=== PATIENT | female | born 1985 | race Two or more races ===

== ENCOUNTER → 2017-07-05 | Outpatient (CLI) | payer OTHER ==
[2017-07-05 08:48] LABS: AUTOMATED NEUTROPHIL # 11.1 TH/MM3 (1.8-7.7); BASOPHIL % 0.3 % (0.0-2.0); EOSINOPHIL # 0.1 TH/MM3 (0-0.4); EOSINOPHIL % 0.8 % (0.0-4.0); HEMO FLAGS DIFF FINAL; LYMPH % 15.8 % (9.0-44.0); LYMPHOCYTE # 2.3 TH/MM3 (1.0-4.8); MEAN CELL VOLUME 80.6 FL (80.0-100.0); MEAN CORPUSCULAR HEMOGLOBIN 27.9 PG (27.0-34.0); MEAN CORPUSCULAR HGB CONC 34.6 % (32.0-36.0); MONO % 5.8 % (0.0-8.0); NEUT % 77.3 % (16.0-70.0); PLATELET COUNT 207 TH/MM3 (150-450); RED BLOOD COUNT 4.71 MIL/MM3 (4.00-5.30); RED CELL DISTRIBUTION WIDTH 13.6 % (11.6-17.2); WHITE BLOOD COUNT 14.3 TH/MM3 (4.0-11.0)
[2017-07-05 08:53] LABS: BACTERIA, URINE RARE /hpf; BLOOD, URINE NEG (NEG); GLUCOSE,URINE NEG (NEG); KETONE, URINE NEG (NEG); MUCUS URINE FEW /lpf (OCC); NITRITE,URINE NEG (NEG); SQUAMOUS EPITHELIAL CELL URINE 1 /hpf (0-5); URINE COLOR LIGHT-YELLOW (YELLW/STRAW)
[2017-07-05 09:21] LABS: SICKLE CELL SCREEN NEG (NEG)
[2017-07-05 09:26] LABS: ALT (GPT) 24 U/L (10-53); AST (GOT) 13 U/L (15-37); BICARBONATE 21.4 MEQ/L (21.0-32.0); BLOOD UREA NITROGEN 10 MG/DL (7-18); GLOMERULAR FILTRATION RATE 164 ML/MIN (>89); GLUCOSE,FASTING 95 MG/DL (74-99)
[2017-07-05 09:27] LABS: ANION GAP 11 MEQ/L (5-15); CHLORIDE 104 MEQ/L (98-107); POTASSIUM 3.8 MEQ/L (3.5-5.1); SODIUM (NA) 136 MEQ/L (136-145)
[2017-07-05 09:28] LABS: ALKALINE PHOSPHATASE 71 U/L (45-117); TOTAL BILIRUBIN ADULT 0.4 MG/DL (0.2-1.0)
[2017-07-05 10:01] LABS: RUBELLA IGG ANTIBODY 21.3 IU/mL (10.0-500.0); RUBELLA STATUS IMMUNE (IMMUNE)
[2017-07-05 20:37] LABS: HEMOGLOBIN A1b 0.9 %; HEMOGLOBIN Ao 86.1 %; HEMOGLOBIN F 0.9 %; HEMOGLOBIN LA1C 1.7 %; HEMOGLOBIN P3 3.4 %
== END ==
LOC: CLAB 08:10
PROVIDERS: ATTEND Obstetrics & Gynecology
DX: Z34.91 Encounter for supervision of normal pregnancy, unspecified, first trimester (principal); R82.90 Unspecified abnormal findings in urine
CPT/HCPCS: 36415; 80053; 80307; 81001; 82570; 83036; 84156; 85025; 85660; 86592; 86703; 86762; 86787; 86803; 86850; 86900; 86901; 87086; 87340; G0480

== ENCOUNTER → 2017-07-08 | Outpatient (CLI) | payer OTHER ==
[2017-07-08 12:42] LABS: CALCIUM - URINE TIMED 8.2 MG/DL
[2017-07-08 12:43] LABS: TOTAL PROTEIN 24 HOUR URINE 87 MG/24HR (0-150); URINE TOTAL PROTEIN TIMED LESS THAN 5.0 MG/DL
[2017-07-08 12:48] LABS: CREAT 24 TIMED 30.7 MG/DL
== END ==
LOC: CLAB 09:45
PROVIDERS: ATTEND Obstetrics & Gynecology
DX: Z34.91 Encounter for supervision of normal pregnancy, unspecified, first trimester (principal)
CPT/HCPCS: 82340; 82570; 84157

== ENCOUNTER → 2017-10-20 | Outpatient (CLI) | payer OTHER ==
[2017-10-20 12:48] LABS: HEMATOCRIT 35.8 % (35.0-46.0); HEMOGLOBIN 12.5 GM/DL (11.6-15.3)
== END ==
LOC: CLAB 11:08
PROVIDERS: ATTEND Obstetrics & Gynecology
DX: Z34.93 Encounter for supervision of normal pregnancy, unspecified, third trimester (principal); Z33.1 Pregnant state, incidental
CPT/HCPCS: 36415; 82951; 85014; 85018; 86703; 87340; G0480

== ENCOUNTER 2017-12-07 11:39 | Observation (INO) | payer OTHER ==
[~2017-12-07] VITALS: Ht 157.5 cm; Wt 87.0 kg
[2017-12-07] VITALS (37 sets, daily range): BP systolic 113–148; BP diastolic 67–97; PULSE 76–96; RESP 8–18; TEMP 98.4–98.7
[2017-12-07] MEDS ORDERED: ONDANSETRON HCL 4 MG/2 ML VIAL IV PUSH PRN (12:00)
[2017-12-07] MEDS ORDERED: DOCUSATE SODIUM 100 MG CAP PO PRN (12:00)
[2017-12-07] MEDS ORDERED: ACETAMINOPHEN 325 MG TAB PO PRN (12:00)
[2017-12-07] MEDS ORDERED: ONDANSETRON ODT 4 MG TAB PO PRN (12:00)
[2017-12-07] MEDS ORDERED: LABETALOL HCL 100 MG/20 ML VIAL IV PUSH PRN ×2 (12:00→12:15)
[2017-12-07] MEDS ORDERED: MAGNESIUM SULFATE 4 GM PREMIX 100 ML IV ONE (12:00)
[2017-12-07] MEDS ORDERED: CALCIUM GLUCONATE 10% 1 GM/10 ML VIAL IV PUSH PRN (12:00)
[2017-12-07] MEDS ORDERED: SODIUM CHLORIDE 0.9% FLUSH 10 ML FLUSH IV FLUSH PRN (12:00)
[2017-12-07] MEDS ORDERED: ZOLPIDEM TARTRATE 5 MG TAB PO PRN (12:00)
[2017-12-07] MEDS: BETAMETHASONE SOD PHOS/ACETATE SUSP 30 MG/5 ML VIAL IM SCH (13:04)
[2017-12-07] MEDS: LACTATED RINGER'S 1000 ML INJ 1,000 ML IV SCH (13:04)
[2017-12-07 13:12] LABS: HEMATOCRIT 35.9 % (35.0-46.0); HEMOGLOBIN 12.6 GM/DL (11.6-15.3); MEAN CELL VOLUME 78.5 FL (80.0-100.0); MEAN CORPUSCULAR HEMOGLOBIN 27.6 PG (27.0-34.0); MEAN CORPUSCULAR HGB CONC 35.2 % (32.0-36.0); MEAN PLATELET VOLUME 9.8 FL (7.0-11.0); PLATELET COUNT 181 TH/MM3 (150-450); RED BLOOD COUNT 4.57 MIL/MM3 (4.00-5.30); RED CELL DISTRIBUTION WIDTH 15.3 % (11.6-17.2); WHITE BLOOD COUNT 12.8 TH/MM3 (4.0-11.0)
[2017-12-07] MEDS: MAGNESIUM SULFATE 40 GM PREMIX 1,000 ML IV SCH (13:16)
[2017-12-07 13:37] LABS: ALBUMIN 2.7 GM/DL (3.4-5.0); AST (GOT) 19 U/L (15-37); BICARBONATE 19.8 MEQ/L (21.0-32.0); BLOOD UREA NITROGEN 7 MG/DL (7-18); CHLORIDE 110 MEQ/L (98-107); CREATININE 0.53 MG/DL (0.50-1.00); GLOMERULAR FILTRATION RATE 135 ML/MIN (>89); GLUCOSE,RANDOM 77 MG/DL (74-106); SODIUM (NA) 140 MEQ/L (136-145)
[2017-12-07 13:38] LABS: ALT (GPT) 14 U/L (10-53)
[2017-12-07 13:40] LABS: ALKALINE PHOSPHATASE 157 U/L (45-117); TOTAL BILIRUBIN ADULT 0.2 MG/DL (0.2-1.0); TOTAL PROTEIN 7.1 GM/DL (6.4-8.2)
[2017-12-07 13:51] LABS: BACTERIA, URINE OCC /hpf; BILIRUBIN, URINE NEG (NEG); BLOOD, URINE NEG (NEG); GLUCOSE,URINE NEG (NEG); KETONE, URINE NEG (NEG); MUCUS URINE FEW /lpf (OCC); NITRITE,URINE NEG (NEG); SQUAMOUS EPITHELIAL CELL URINE 10 /hpf (0-5); URINE COLOR LIGHT-YELLOW (YELLW/STRAW); URINE LEUKOCYTE ESTERASE NEG (NEG)
[2017-12-07] MEDS ORDERED: PREN1TAB45 PO (14:35)
--- NOTE | 2017-12-07 17:10 | HHI.HP ---
HPI Chief Complaint gestational hypertension, rule out preeclampsia Travel History International Travel<30 Days: No Contact w/Intl Traveler<30Days: No Known Affected Area: No History of Present Illness HPI 31 yo with iup at 33w5d by first trimester u/s being admitted for PIH, r /o pre-eclampsia. BP today was 130/90 with trace protein; She has been having headaches the last 3 days, severity has decreased after tylenol but still present today. Believes she saw spots last week. No ruq pain or epigastric pain. G1 complicated by severe pre-e and delivery at 35 weeks. Same FOB. Weeks Gestation: 33 Para: 1 : 2 History Past Medical History Narrative Medical vaginismus Medical History: Denies Significant Hx Obstetric History Obstetric History 01/2013 CD at 35 weeks for severe pre-e , Male 3 lb 15 oz Past Surgical History Narrative Surgical cd Family History Family History: Negative Social History Alcohol Use: No Tobacco Use: No Substance Abuse: No Allergies-Medications (Allergen,Severity, Reaction): Coded Allergies: No Known Allergies (Unverified , 12/07/17) Home Meds Reported Medications Vit,Calc76/Iron/Folic (Pnv 29-1 Tablet) 29 Mg Iron-1 Mg Tablet, 1 TAB PO dailyy 12/07/17 Review of Systems Eyes: Visual changes HENT: Headaches Physical Exam Vital Signs Date Time Temp Pulse Resp B/P (MAP) Pulse Ox O2 Delivery O2 Flow Rate FiO2 12/07/17 16:31 85 135/87 (103) 12/07/17 16:16 86 135/87 (103) 12/07/17 16:01 84 134/76 (95) 12/07/17 15:46 89 126/73 (90) 12/07/17 15:31 80 141/89 (106) 12/07/17 15:16 81 135/86 (102) 12/07/17 15:01 81 135/88 (104) 12/07/17 15:00 17 12/07/17 14:46 80 118/96 (103) 12/07/17 14:31 76 141/79 (99) 12/07/17 14:30 16 12/07/17 14:16 83 138/88 (105) 12/07/17 14:01 86 144/92 (109) 12/07/17 14:00 16 12/07/17 13:55 96 12/07/17 13:50 83 12/07/17 13:46 83 144/91 (108) 12/07/17 13:45 89 12/07/17 13:31 85 132/87 (102) 12/07/17 13:30 85 12/07/17 13:30 16 12/07/17 13:15 80 137/97 (110) 12/07/17 13:08 82 148/93 (111) 12/07/17 12:10 90 144/93 (110) 12/07/17 12:09 98.7 12/07/17 12:09 18 Narrative GENERAL: Well-nourished, well-developed patient. SKIN: Warm and dry. HEAD: Normocephalic and atraumatic. EYES: No scleral icterus. No injection or drainage. ENT: No nasal drainage noted. Mucous membranes pink. Airway patent. NECK: Supple, trachea midline. No JVD. CARDIOVASCULAR: Regular rate and rhythm without murmurs, gallops, or rubs. ABDOMEN/GI: Abdomen soft, non-tender, bowel sounds present, no rebound, no guarding Gravid [id number] size Fundal Height: [-] GENITOURINARY: External Genitalia: defer Presentation: [C] Membranes: [intact Uterine Contractions: [-] FHT's: office u/s BPP 8/8, Placenta grade 2-3, normal UA dopplers. EFW 4 lb, (20 %ile) EXTREMITIES: No cyanosis or edema. BACK: Nontender without obvious deformity. No CVA tenderness. NEUROLOGICAL: Awake and alert. Motor and sensory grossly within normal limits. Five out of 5 muscle strength in all muscle groups. Normal speech. No lconus, reflexes 2+ Caprini VTE Risk Assessment Caprini VTE Risk Assessment: No/Low Risk (score <= 1) Caprini Risk Assessment Model Point Value = 1 Point Value = 2 Point Value = 3 Point Value = 5 Age 41-60 Minor surgery BMI > 25 kg/m2 Swollen legs Varicose veins or History of unexplained or recurrent spontaneous Oral contraceptives or hormone replacement Sepsis (< 1 month) Serious lung disease, including pneumonia (< 1 month) Abnormal pulmonary function Acute myocardial infarction Congestive heart failure (< 1 month) History of inflammatory bowel disease Medical patient at bed rest Age 61-74 Arthroscopic surgery Major open surgery (> 45 min) Laparoscopic surgery (> 45 min) Malignancy Confined to bed (> 72 hours) Immobilizing plaster cast Central venous access Age >= 75 History of VTE Family history of VTE Factor V Leiden Prothrombin [id number] Lupus anticoagulant Anticardiolipin antibodies Elevated serum homocysteine Heparin-induced thrombocytopenia Other congenital or acquired thrombophilia Stroke (< 1 month) Elective arthroplasty Hip, pelvis, or leg fracture Acute spinal cord injury (< 1 month) Prophylaxis Regimen Total Risk Factor Score Risk Level Prophylaxis Regimen 0-1 Low Early ambulation 2 Moderate Order ONE of the following: *Sequential Compression Device (SCD) *Heparin 5000 units SQ BID 3-4 Higher Order ONE of the following medications: *Heparin 5000 units SQ TID *Enoxaparin/Lovenox 40 mg SQ daily (WT < 150 kg, CrCl > 30 mL/min) *Enoxaparin/Lovenox 30 mg SQ daily (WT < 150 kg, CrCl > 10-29 mL/min) *Enoxaparin/Lovenox 30 mg SQ BID (WT < 150 kg, CrCl > 30 mL/min) AND/OR *Sequential Compression Device (SCD) 5 or more Highest Order ONE of the following medications: *Heparin 5000 units SQ TID (Preferred with Epidurals) *Enoxaparin/Lovenox 40 mg SQ daily (WT < 150 kg, CrCl > 30 mL/min) *Enoxaparin/Lovenox 30 mg SQ daily (WT < 150 kg, CrCl > 10-29 mL/min) *Enoxaparin/Lovenox 30 mg SQ BID (WT < 150 kg, CrCl > 30 mL/min) AND *Sequential Compression Device (SCD) Data Data Vital Signs Reviewed: Yes Orders Orders Place In Observation (12/07/17 ) Vital Signs (Adult) Q5MX4,Q15MX4,Q30MX2,Q1H (12/07/17 11:55) Activity Bed Rest (12/07/17 11:55) Intake + Output Q1H (12/07/17 11:55) Notify Dr. Arnold (12/07/17 11:55) Heart CONTINUOUS (12/07/17 11:55) Urinary Catheter Management CARLOS.Q8H (12/07/17 11:55) ^ Check Deep Tendon Reflexes Q1H (12/07/17 11:55) Diet Liquid (12/07/17 Lunch) Lactated Ringer's 1000 Ml Inj (Lr 1000 M (12/07/17 12:00) Sodium Chloride 0.9% Flush (Ns Flush) (12/07/17 12:00) Sodium Chloride 0.9% Flush (Ns Flush) (12/07/17 21:00) Magnesium Sulfate 40 Gm Premix (Magnesiu (12/07/17 12:00) Labetalol Inj (Trandate Inj) (12/07/17 12:00) Labetalol Inj (Trandate Inj) (12/07/17 12:15) Betamethasone Inj ([place]estone Soluspan In (12/07/17 12:00) Calcium Gluconate Inj (Calcium Gluconate (12/07/17 12:00) Acetaminophen (Tylenol) (12/07/17 12:00) Ondansetron Inj (Zofran Inj) (12/07/17 12:00) Ondansetron Odt (Zofran Odt) (12/07/17 12:00) Docusate Sodium (Colace) (12/07/17 12:00) [id number]-Kws-Hijjk-Iron Prenat (Stuartna (12/08/17 09:00) Zolpidem (Ambien) (12/07/17 12:00) Cbc No Diff, Includes Plts (12/07/17 11:55) Cbc No Diff, Includes Plts (12/08/17 06:00) Comprehensive Metabolic Panel (12/07/17 11:55) Comprehensive Metabolic Panel (12/08/17 06:00) Uric Acid (12/07/17 11:55) Uric Acid (12/08/17 06:00) Urinalysis - C+S If Indicated (12/07/17 11:55) Total Protein 24hr Urine (12/07/17 11:55) Creatinine 24 Hr Urine (12/07/17 11:55) Magnesium Sulfate 4 Gm Premix (Magnesium (12/07/17 12:00) Specimen To Be Collected PRN (12/07/17 11:55) Urine Culture (12/07/17 12:30) Labs Laboratory Tests Test 12/07/17 12:30 White Blood Count 12.8 Red Blood Count 4.57 Hemoglobin 12.6 Hematocrit 35.9 Mean Corpuscular Volume 78.5 Mean Corpuscular Hemoglobin 27.6 Mean Corpuscular Hemoglobin Concent 35.2 Red Cell Distribution Width 15.3 Platelet Count 181 Mean Platelet Volume 9.8 Urine Color LIGHT-YELLOW Urine Turbidity HAZY Urine pH 7.0 Urine Specific [place] 1.009 Urine Protein NEG Urine Glucose (UA) NEG Urine Ketones NEG Urine Occult Blood NEG Urine Nitrite NEG Urine Bilirubin NEG Urine Urobilinogen LESS THAN 2.0 Urine Leukocyte Esterase NEG Urine RBC LESS THAN 1 Urine WBC 1 Urine Squamous Epithelial Cells 10 Urine Bacteria OCC Urine Mucus FEW Microscopic Urinalysis Comment CATH-CULTURE IND Blood Urea Nitrogen 7 Creatinine 0.53 Random Glucose 77 Total Protein 7.1 Albumin 2.7 Calcium Level 9.0 Uric Acid 3.1 Alkaline Phosphatase 157 Aspartate Amino Transf (AST/SGOT) 19 Alanine Aminotransferase (ALT/SGPT) 14 Total Bilirubin 0.2 Sodium Level 140 Potassium Level 3.9 Chloride Level 110 Carbon Dioxide Level 19.8 Anion Gap 10 Estimat Glomerular Filtration Rate 135 Date/Time Source Procedure Growth Status 12/07/17 12:30 Urine Catheterized Urine Urine Culture Pending Received Assessment/Plan Problem List: (1) PIH ( induced hypertension) ICD Codes: O13.9 - Gestational [-induced] hypertension without significant proteinuria, unspecified trimester (2) with 33 completed weeks gestation ICD Codes: Z3A.33 - 33 weeks gestation of (3) History of delivery ICD Codes: Z98.891 - History of uterine scar from previous surgery (4) History of pre-eclampsia in prior , currently in third trimester ICD Codes: O09.293 - Supervision of with other poor reproductive or obstetric history, third trimester Assessment and Plan 31 yo with iup at 33wd being admitted for pre-eclampsia workup 1) PIH r/o pre-e - serial BP, PIH labs and 24 hour urine ordered. BMS for lung maturity and Magnesium 12 hours for neuroprotection in event early delivery required. Discussed need for delivery if severe features present. 2) H/o severe pre-e with G1- baseline 24 hour urine wiht 87mg of protein. P:C 0.29 3) H/o CD- desires repeat 4) Vaginismus- does not tolerate pelvic exam/speculum 5) FEtus- Male "navneet" EFW 4 lb on 12/07/17, normal UA dopplers 6) GBS unknown- keesha order rapid gbs Sweta Pinon MD Dec 07, 2017 17:10
[2017-12-07] MEDS: SODIUM CHLORIDE 0.9% FLUSH 10 ML FLUSH IV FLUSH SCH (21:00)
[2017-12-08] VITALS (24 sets, daily range): BP systolic 110–144; BP diastolic 64–94; PULSE 79–95; RESP 14–18; TEMP 97.8–98.3
[2017-12-08 05:55] LABS: HEMATOCRIT 36.4 % (35.0-46.0); HEMOGLOBIN 12.1 GM/DL (11.6-15.3); MEAN CELL VOLUME 79.8 FL (80.0-100.0); MEAN CORPUSCULAR HEMOGLOBIN 26.6 PG (27.0-34.0); MEAN CORPUSCULAR HGB CONC 33.4 % (32.0-36.0); MEAN PLATELET VOLUME 9.6 FL (7.0-11.0); PLATELET COUNT 179 TH/MM3 (150-450); RED BLOOD COUNT 4.55 MIL/MM3 (4.00-5.30); RED CELL DISTRIBUTION WIDTH 15.1 % (11.6-17.2); WHITE BLOOD COUNT 16.9 TH/MM3 (4.0-11.0)
[2017-12-08 06:24] LABS: ALBUMIN 2.5 GM/DL (3.4-5.0); CALCIUM 7.2 MG/DL (8.5-10.1); CREATININE 0.52 MG/DL (0.50-1.00); TOTAL BILIRUBIN ADULT 0.4 MG/DL (0.2-1.0); TOTAL PROTEIN 6.7 GM/DL (6.4-8.2)
[2017-12-08 06:32] LABS: CALCIUM-PROTEIN CORRECTED 7.4 MG/DL (8.5-10.1)
[2017-12-08] MEDS: SODIUM CHLORIDE 0.9% FLUSH 10 ML FLUSH IV FLUSH SCH ×2 (08:13→21:10)
[2017-12-08] MEDS: MAGNESIUM SULFATE 40 GM PREMIX 1,000 ML IV SCH (08:13)
[2017-12-08] MEDS ORDERED: MULTIVIT/MIN/PREN/FOL AC/IRON PRENATAL TAB PO SCH (09:00)
--- NOTE | 2017-12-08 11:33 | PD.OB.ANTE ---
Subjective Diagnosis: (1) PIH ( induced hypertension) (2) with 33 completed weeks gestation (3) History of delivery (4) History of pre-eclampsia in prior , currently in third trimester Interval History Feeling well mild headache at times no nausea, vomiting or blurred vison good movement BP's elevated compared to in awaiting 24 hour urine Objective Vital Signs Vital Signs Date Time Temp Pulse Resp B/P (MAP) Pulse Ox O2 Delivery O2 Flow Rate FiO2 12/08/17 11:00 18 12/08/17 10:00 93 128/79 (95) 12/08/17 09:37 17 12/08/17 09:01 92 113/68 (83) 12/08/17 08:01 94 144/94 (111) 12/08/17 08:00 97.8 12/08/17 08:00 18 12/08/17 07:01 84 128/74 (92) 12/08/17 06:01 86 125/76 (92) 12/08/17 05:00 79 124/79 (94) 12/08/17 05:00 16 12/08/17 04:01 79 124/75 (91) 12/08/17 03:00 84 18 126/82 (97) 12/08/17 02:01 84 110/70 (83) 12/08/17 01:01 95 130/82 (98) 12/08/17 01:00 98.0 18 12/08/17 00:01 92 115/64 (81) 12/07/17 23:01 94 113/67 (82) 12/07/17 22:00 18 12/07/17 22:00 91 127/73 (91) 12/07/17 21:01 89 123/80 (94) 12/07/17 21:00 18 12/07/17 20:00 96 131/79 (96) 12/07/17 19:29 98.4 18 12/07/17 19:01 91 114/84 (94) 12/07/17 18:01 93 130/81 (97) 12/07/17 18:00 8 18 18:00 18 12/07/17 17:01 85 124/76 (92) 12/07/17 17:00 16 12/07/17 16:46 90 138/76 (96) 12/07/17 16:31 85 135/87 (103) 12/07/17 16:16 86 135/87 (103) 12/07/17 16:01 84 134/76 (95) 12/07/17 16:00 17 12/07/17 15:46 89 126/73 (90) 12/07/17 15:31 80 141/89 (106) 12/07/17 15:16 81 135/86 (102) 12/07/17 15:01 81 135/88 (104) 12/07/17 15:00 17 12/07/17 14:46 80 118/96 (103) 12/07/17 14:31 76 141/79 (99) 12/07/17 14:30 16 12/07/17 14:16 83 138/88 (105) 12/07/17 14:01 86 144/92 (109) 12/07/17 14:00 16 12/07/17 13:55 96 12/07/17 13:50 83 12/07/17 13:46 83 144/91 (108) 12/07/17 13:45 89 12/07/17 13:31 85 132/87 (102) 12/07/17 13:30 85 12/07/17 13:30 16 12/07/17 13:15 80 137/97 (110) 12/07/17 13:08 82 148/93 (111) 12/07/17 12:10 90 144/93 (110) 12/07/17 12:09 98.7 12/07/17 12:09 18 Lab & Micro Results Test 12/07/17 12:30 12/08/17 05:10 White Blood Count 12.8 TH/MM3 16.9 TH/MM3 Red Blood Count 4.57 MIL/MM3 4.55 MIL/MM3 Hemoglobin 12.6 GM/DL 12.1 GM/DL Hematocrit 35.9 % 36.4 % Mean Corpuscular Volume 78.5 FL 79.8 FL Mean Corpuscular Hemoglobin 27.6 PG 26.6 PG Mean Corpuscular Hemoglobin Concent 35.2 % 33.4 % Red Cell Distribution Width 15.3 % 15.1 % Platelet Count 181 TH/MM3 179 TH/MM3 Mean Platelet Volume 9.8 FL 9.6 FL Urine Color LIGHT-YELLOW Urine Turbidity HAZY Urine pH 7.0 Urine Specific [place] 1.009 Urine Protein NEG mg/dL Urine Glucose (UA) NEG mg/dL Urine Ketones NEG mg/dL Urine Occult Blood NEG Urine Nitrite NEG Urine Bilirubin NEG Urine Urobilinogen LESS THAN 2.0 MG/DL Urine Leukocyte Esterase NEG Urine RBC LESS THAN 1 /hpf Urine WBC 1 /hpf Urine Squamous Epithelial Cells 10 /hpf Urine Bacteria OCC /hpf Urine Mucus FEW /lpf Microscopic Urinalysis Comment CATH-CULTURE IND Blood Urea Nitrogen 7 MG/DL 5 MG/DL Creatinine 0.53 MG/DL 0.52 MG/DL Random Glucose 77 MG/DL 99 MG/DL Total Protein 7.1 GM/DL 6.7 GM/DL Albumin 2.7 GM/DL 2.5 GM/DL Calcium Level 9.0 MG/DL 7.2 MG/DL Uric Acid 3.1 MG/DL 4.1 MG/DL Alkaline Phosphatase 157 U/L 152 U/L Aspartate Amino Transf (AST/SGOT) 19 U/L 11 U/L Alanine Aminotransferase (ALT/SGPT) 14 U/L 14 U/L Total Bilirubin 0.2 MG/DL 0.4 MG/DL Sodium Level 140 MEQ/L 136 MEQ/L Potassium Level 3.9 MEQ/L 3.8 MEQ/L Chloride Level 110 MEQ/L 104 MEQ/L Carbon Dioxide Level 19.8 MEQ/L 21.0 MEQ/L Anion Gap 10 MEQ/L 11 MEQ/L Estimat Glomerular Filtration Rate 135 ML/MIN 138 ML/MIN Protein Corrected Calcium 7.4 MG/DL Date/Time Source Procedure Growth Status 12/07/17 12:30 Urine Catheterized Urine Urine Culture Pending Received Physical Exam GENERAL: Well-nourished, well-developed patient. CARDIOVASCULAR: Regular rate and rhythm without murmurs, gallops, or rubs. RESPIRATORY: Breath sounds equal bilaterally. No accessory muscle use. ABDOMEN/GI: Abdomen soft, non-tender. Fundus: [-] GENITOURINARY: External Genitalia: intact and normal in appearance strip category 1 EXTREMITIES: No cyanosis or edema, non-tender, without signs of DVT. Assessment and Plan Problem List: (1) PIH ( induced hypertension) ICD Codes: O13.9 - Gestational [-induced] hypertension without significant proteinuria, unspecified trimester (2) with 33 completed weeks gestation ICD Codes: Z3A.33 - 33 weeks gestation of (3) History of delivery ICD Codes: Z98.891 - History of uterine scar from previous surgery (4) History of pre-eclampsia in prior , currently in third trimester ICD Codes: O09.293 - Supervision of with other poor reproductive or obstetric history, third trimester Assessment and Plan 31 yo with iup at 33wd being admitted for pre-eclampsia workup 1) PIH r/o pre-e - serial BP, PIH labs and 24 hour urine ordered. BMS for lung maturity and Magnesium 12 hours for neuroprotection in event early delivery required. Discussed need for delivery if severe features present. 2) H/o severe pre-e with G1- baseline 24 hour urine wiht 87mg of protein. P:C 0.29 3) H/o CD- desires repeat 4) Vaginismus- does not tolerate pelvic exam/speculum 5) FEtus- Male "navneet" EFW 4 lb on 12/07/17, normal UA dopplers 6) GBS unknown- keesha order rapid gbs HD 2 can stop mag regular diet await 24 hour urine and re evalutate had severe pre eclampsia with first one at 35 weeks Debora Palacio MD Dec 08, 2017 11:33
[2017-12-08] MEDS: BETAMETHASONE SOD PHOS/ACETATE SUSP 30 MG/5 ML VIAL IM SCH (13:33)
[2017-12-08] MEDS: LACTATED RINGER'S 1000 ML INJ 1,000 ML IV SCH (14:21)
[2017-12-08 15:51] LABS: CREATININE 24 HOUR, URINE 0.95 GM/24HR (0.63-2.50)
[2017-12-09 06:26] VITALS: BP 113/63; PULSE 63; RESP 14; TEMP 98
--- NOTE | 2017-12-09 08:32 | HHI.PR ---
[employer] Note Note S: Doing well, denies headache, epigastric pain, right upper quadrant pain, no vaginal bleeding or leakage of fluid, endorses movement. O: VS: BP range x 24hrs: 113-129/63-82 Exam: deferred patellar DTRs 1+, no clonus bilaterally, FHTs: 120s, moderate variability, accelerations present, no decelerations TOCO: No contractions A/P 31-year-old at 34 weeks 0 days by L/9 (ADOLPH 01/20/2018) here for rule out preeclampsia. 1. IUP: cat 1 tracing - EFW (12/07)= 1814g (20%), AC 6%, JANIE 15cm, post plac, 03/29 BPP - cephalic as of above US - Male fetus - GBS pending 2. GHTN: Patient with mild range blood pressures on admission, have been normotensive and she has been asymptomatic over the past 24 hours. HELLP labs here normal 2. - BL 24hr urine protein 87mg (07/15/18), repeat during this admission 291mg () - s/p BMZ for FLM (12/07) - Dispo: d/c home, discussed preeclampsia precautions, patient to check blood pressures at home twice a day, inform her of criteria that warrant evaluation. Patient to follow-up in the office next week, plan for at least weekly testing and 1-2 times a week HELLP labs. 3. h/o x1: pt desires repeat 4. h/o PTD x1: at 34w for PREC, not on aspirin this 5. Vaginismus: pt does not tolerate exams well. Brian Jesus MD Dec 09, 2017 08:32
--- NOTE | 2017-12-09 08:40 | HHI.DS ---
Admission Date Dec 07, 2017 at 11:45 Discharge Date: Dec 09, 2017 Admitting Diagnosis Admitting diagnoses: Elevated blood pressures, history of 1, history of delivery secondary to preeclampsia. Discharge diagnoses: Gestational hypertension, remaining same as above Diagnosis: Brief History There is a 31-year-old who presented at 33 weeks in 3 days for evaluation for preeclampsia, she had serial HELLP labs that were all within normal limits, a 24-hour urine protein was collected and resulted at 291 mg, she had a baseline 24-hour urine on 07/15/2018 of 87 mg. She remained asymptomatic, she received betamethasone for lung maturity. A recent ultrasound on 12/07/17 showed her male fetus at 1814 g in the 20th percentile with a 8 out of 8 BPP. On hospital day #2, all the results were discussed with the patient and the plan was made for discharge home with close outpatient follow-up with testing and HELLP labs either 1-2 times a week, patient will check her blood pressures at home 1-2 times a day and call with any severe range blood pressures. Pt Condition on Discharge: Good Discharge Disposition: Discharge Home Discharge Instructions Diet Instructions: As Tolerated, No Restrictions Activities You Can Perform: Regular-No Restrictions Activities to Avoid: Strenuous Activity Follow up Referrals: MANUFACTURING OPERATOR - 1 Week @ [facility] with Sweta Pinon MD Continued Medications: Vit,Calc76/Iron/Folic (Pnv 29-1 Tablet) 29 Mg Iron-1 Mg Tablet 1 TAB PO Brian Collins MD Dec 09, 2017 08:40
== END 2017-12-09 11:20 | disposition home or self-care (01) ==
LOC: EDSTATUS 11:43 → H2EB 11:45
PROVIDERS: ADMIT Obstetrics & Gynecology; ATTEND Obstetrics & Gynecology
DX: O13.3 Gestational [pregnancy-induced] hypertension without significant proteinuria, third trimester (principal); Z3A.35 35 weeks gestation of pregnancy; Z87.59 Personal history of other complications of pregnancy, childbirth and the puerperium
CPT/HCPCS: 80053; 81001; 82570; 84157; 84550; 85027; 87086; 96361; 96365; 96366; 96372; 96376; G0378; J0702; J3475; J7120

== ENCOUNTER → 2017-12-15 | Outpatient (CLI) | payer OTHER ==
[~2017-12-15] MED LIST: IBUP-232 PO; PERC5TAB12 PO; PREN1TAB45 PO
[2017-12-15 10:42] LABS: AUTOMATED NEUTROPHIL # 11.6 TH/MM3 (1.8-7.7); BASOPHIL % 0.2 % (0.0-2.0); EOSINOPHIL # 0.2 TH/MM3 (0-0.4); EOSINOPHIL % 1.1 % (0.0-4.0); HEMATOCRIT 37.1 % (35.0-46.0); HEMOGLOBIN 12.5 GM/DL (11.6-15.3); LYMPH % 14.7 % (9.0-44.0); LYMPHOCYTE # 2.2 TH/MM3 (1.0-4.8); MEAN CELL VOLUME 79.8 FL (80.0-100.0); MEAN CORPUSCULAR HGB CONC 33.8 % (32.0-36.0); MEAN PLATELET VOLUME 9.8 FL (7.0-11.0); PLATELET COUNT 202 TH/MM3 (150-450); RED BLOOD COUNT 4.65 MIL/MM3 (4.00-5.30); RED CELL DISTRIBUTION WIDTH 15.1 % (11.6-17.2)
[2017-12-15 11:10] LABS: ALT (GPT) 14 U/L (10-53)
[2017-12-15 11:12] LABS: ALKALINE PHOSPHATASE 159 U/L (45-117); TOTAL BILIRUBIN ADULT 0.2 MG/DL (0.2-1.0); TOTAL PROTEIN 6.5 GM/DL (6.4-8.2)
[2017-12-15 11:14] LABS: ALBUMIN 2.5 GM/DL (3.4-5.0); AST (GOT) 19 U/L (15-37); BICARBONATE 20.4 MEQ/L (21.0-32.0); BLOOD UREA NITROGEN 11 MG/DL (7-18); CALCIUM 8.9 MG/DL (8.5-10.1); CHLORIDE 107 MEQ/L (98-107); CREATININE 0.59 MG/DL (0.50-1.00); GLOMERULAR FILTRATION RATE 120 ML/MIN (>89); GLUCOSE,FASTING 107 MG/DL (74-99); SODIUM (NA) 138 MEQ/L (136-145)
== END ==
LOC: CLAB 10:03
PROVIDERS: ATTEND Obstetrics & Gynecology
DX: O13.9 Gestational [pregnancy-induced] hypertension without significant proteinuria, unspecified trimester (principal)
CPT/HCPCS: 36415; 80053; 82570; 84156; 84550; 85025

== ENCOUNTER 2017-12-16 12:36 | Inpatient (IN) | payer OTHER ==
[2017-12-16] VITALS (33 sets, daily range): BP systolic 125–147; BP diastolic 74–96; PULSE 69–101; RESP 18; TEMP 98.2
[~2017-12-16 12:36] MED LIST changes: -IBUP-232 PO; -PERC5TAB12 PO
[2017-12-16] MEDS ORDERED: ACETAMINOPHEN 325 MG TAB PO PRN (13:00)
[2017-12-16] MEDS ORDERED: ONDANSETRON ODT 4 MG TAB PO PRN (13:00)
[2017-12-16] MEDS ORDERED: ZOLPIDEM TARTRATE 5 MG TAB PO PRN (13:00)
[2017-12-16] MEDS ORDERED: DOCUSATE SODIUM 100 MG CAP PO PRN (13:00)
[2017-12-16] MEDS ORDERED: ONDANSETRON HCL 4 MG/2 ML VIAL IV PUSH PRN (13:00)
[2017-12-16] MEDS ORDERED: SODIUM CHLORIDE 0.9% FLUSH 10 ML FLUSH IV FLUSH PRN (13:00)
[2017-12-16 14:38] LABS: AMORPHOUS SEDIMENT, URINE RARE; BACTERIA, URINE OCC /hpf; BILIRUBIN, URINE NEG (NEG); BLOOD, URINE NEG (NEG); GLUCOSE,URINE NEG (NEG); KETONE, URINE NEG (NEG); NITRITE,URINE NEG (NEG); SQUAMOUS EPITHELIAL CELL URINE 9 /hpf (0-5); URINE COLOR LIGHT-YELLOW (YELLW/STRAW); URINE LEUKOCYTE ESTERASE TRACE (NEG)
--- NOTE | 2017-12-16 15:22 | HHI.HP ---
HPI Chief Complaint GHTN and elevated P:C ratio Travel History International Travel<30 Days: No Contact w/Intl Traveler<30Days: No Known Affected Area: No History of Present Illness HPI 31 yo with iup at 35 weeks, dating by first trimester u/s c/w lmp (EDC ), being admitted for pre-eclampsia workup. She was admitted on 12/07with elevated BP and headaches. Bp normal to mild range, and normal labs during that admission. 24 hour urine collection- result 291 mg of protein. She received steroids on 12/07-12/08. She was sent home on modified bedrest; receiving twice weekly testing in the office. She reports normal BP at home. Presently denies CALVO, blurry visioni, RUQ pain. In office today, BP was 140/90. She had outpt PIH labs on 12/15/17; elevated protein to creatinine ratio of 0.34, remainder of labs normal. BPP 8/8 in office today, notes JANIE decreased to 6, UA dopplers elevated mildly at 3.4; Grade 3 placenta. Weeks Gestation: 35 Para: 1 : 2 History Past Medical History Narrative Medical vaginismus Obstetric History Obstetric History G1 01/2013 CD at 35 wk for severe pre-e, Male, 3 #15 oz. Haris Past Surgical History Narrative Surgical CD Family History Family History: Negative Social History Alcohol Use: No Tobacco Use: No Substance Abuse: No Allergies-Medications (Allergen,Severity, Reaction): Coded Allergies: No Known Allergies (Unverified , 12/07/17) Home Meds Reported Medications Vit,Calc76/Iron/Folic (Pnv 29-1 Tablet) 29 Mg Iron-1 Mg Tablet, 1 TAB PO dailyy 12/07/17 Review of Systems General / Constitutional: No: Fever, Weight Gain, Chills, Other Eyes: No: Diploplia, Blurred Vision, Visual changes, Pain, Photophobia HENT: No: Headaches, Vertigo, Lightheadedness Cardiovascular: No: Irregular Rhythm, Chest Pain or Discomfort, Palpitations, Tachycardia, Syncope, Varicosities, Edema, Cyanosis Respiratory: No: Cough, Short of Breath, Other Gastrointestinal: No: Nausea, Vomiting, Diarrhea Genitourinary: No: Decreased Urinary Output, Oliguria Musculoskeletal: No: Limited ROM, Weakness, Cramping, Edema, Pain Skin: No Rash, No Itching, No Dryness, No Lumps, No Change in Pigmentation, No Change in Nails, No Alopecia, No Lesions Neurologic: No: Weakness, Dizziness, Syncope, Focal Abnormalities, Coordination Problem, Headache, Slurred Speech, Seizures Psychiatric: No: Depression, Suicidal Ideations, Homicidal Ideation Endocrine: No: Heat Intolerance, Cold Intolerance, Polydipsia, Polyuria, Other Physical Exam Narrative GENERAL: Well-nourished, well-developed patient. SKIN: Warm and dry. HEAD: Normocephalic and atraumatic. EYES: No scleral icterus. No injection or drainage. ENT: No nasal drainage noted. Mucous membranes pink. Airway patent. NECK: Supple, trachea midline. No JVD. CARDIOVASCULAR: Regular rate and rhythm without murmurs, gallops, or rubs. RESPIRATORY: Breath sounds equal bilaterally. No accessory muscle use. ABDOMEN/GI: Abdomen soft, non-tender, bowel sounds present, no rebound, no guarding Gravid to 35 weeks size Fundal Height: [-] GENITOURINARY: decline Presentation: Ceph] Membranes: [intact Uterine Contractions: [-] FHT's: BPP 8/8, normal FCA EXTREMITIES: No cyanosis or edema. BACK: Nontender without obvious deformity. No CVA tenderness. NEUROLOGICAL: Awake and alert. Motor and sensory grossly within normal limits. Five out of 5 muscle strength in all muscle groups. Normal speech. Caprini VTE Risk Assessment Caprini VTE Risk Assessment: No/Low Risk (score <= 1) Caprini Risk Assessment Model Point Value = 1 Point Value = 2 Point Value = 3 Point Value = 5 Age 41-60 Minor surgery BMI > 25 kg/m2 Swollen legs Varicose veins or History of unexplained or recurrent spontaneous Oral contraceptives or hormone replacement Sepsis (< 1 month) Serious lung disease, including pneumonia (< 1 month) Abnormal pulmonary function Acute myocardial infarction Congestive heart failure (< 1 month) History of inflammatory bowel disease Medical patient at bed rest Age 61-74 Arthroscopic surgery Major open surgery (> 45 min) Laparoscopic surgery (> 45 min) Malignancy Confined to bed (> 72 hours) Immobilizing plaster cast Central venous access Age >= 75 History of VTE Family history of VTE Factor V Leiden Prothrombin [id number] Lupus anticoagulant Anticardiolipin antibodies Elevated serum homocysteine Heparin-induced thrombocytopenia Other congenital or acquired thrombophilia Stroke (< 1 month) Elective arthroplasty Hip, pelvis, or leg fracture Acute spinal cord injury (< 1 month) Prophylaxis Regimen Total Risk Factor Score Risk Level Prophylaxis Regimen 0-1 Low Early ambulation 2 Moderate Order ONE of the following: *Sequential Compression Device (SCD) *Heparin 5000 units SQ BID 3-4 Higher Order ONE of the following medications: *Heparin 5000 units SQ TID *Enoxaparin/Lovenox 40 mg SQ daily (WT < 150 kg, CrCl > 30 mL/min) *Enoxaparin/Lovenox 30 mg SQ daily (WT < 150 kg, CrCl > 10-29 mL/min) *Enoxaparin/Lovenox 30 mg SQ BID (WT < 150 kg, CrCl > 30 mL/min) AND/OR *Sequential Compression Device (SCD) 5 or more Highest Order ONE of the following medications: *Heparin 5000 units SQ TID (Preferred with Epidurals) *Enoxaparin/Lovenox 40 mg SQ daily (WT < 150 kg, CrCl > 30 mL/min) *Enoxaparin/Lovenox 30 mg SQ daily (WT < 150 kg, CrCl > 10-29 mL/min) *Enoxaparin/Lovenox 30 mg SQ BID (WT < 150 kg, CrCl > 30 mL/min) AND *Sequential Compression Device (SCD) Data Data Vital Signs Reviewed: Yes Orders Orders Us Ob Bpp Wo Nst (12/16/17 ) Place In Observation (12/16/17 ) Vital Signs (Adult) Q5MX4,Q15MX4,Q30MX2,Q1H (12/16/17 12:46) Activity Bed Rest (12/16/17 12:46) Intake + Output Q1H (12/16/17 12:46) Notify Parameters (12/16/17 12:46) Heart CONTINUOUS (12/16/17 12:46) ^ Check Deep Tendon Reflexes Q1H (12/16/17 12:46) Sodium Chloride 0.9% Flush (Ns Flush) (12/16/17 13:00) Sodium Chloride 0.9% Flush (Ns Flush) (12/16/17 21:00) Acetaminophen (Tylenol) (12/16/17 13:00) Ondansetron Inj (Zofran Inj) (12/16/17 13:00) Ondansetron Odt (Zofran Odt) (12/16/17 13:00) Docusate Sodium (Colace) (12/16/17 13:00) Drwstpsz-Wzv-Rdwqx-Iron Prenat (Stuartna (12/17/17 09:00) Zolpidem (Ambien) (12/16/17 13:00) Cbc No Diff, Includes Plts (12/16/17 12:46) Cbc No Diff, Includes Plts (12/17/17 06:00) Comprehensive Metabolic Panel (12/16/17 12:46) Comprehensive Metabolic Panel (12/17/17 06:00) Uric Acid (12/16/17 12:46) Uric Acid (12/17/17 06:00) Urinalysis - C+S If Indicated (12/16/17 12:46) Total Protein 24hr Urine (12/16/17 12:46) Creatinine 24 Hr Urine (12/16/17 12:46) Specimen To Be Collected PRN (12/16/17 12:46) Diet Regular Basic (12/16/17 Lunch) Heart CARLOS.QD (12/16/17 12:48) Activity Bed Rest With Brp (12/16/17 12:48) Type And Screen (12/16/17 13:56) Us Ob Repeat/Fu(Growth) (12/16/17 ) ^ Saline Lock (12/16/17 13:56) Urine Culture (12/16/17 13:10) Labs Laboratory Tests Test 12/16/17 13:10 Urine Color LIGHT-YELLOW Urine Turbidity HAZY Urine pH 6.0 Urine Specific [place] 1.004 Urine Protein NEG Urine Glucose (UA) NEG Urine Ketones NEG Urine Occult Blood NEG Urine Nitrite NEG Urine Bilirubin NEG Urine Urobilinogen LESS THAN 2.0 Urine Leukocyte Esterase TRACE Urine RBC 1 Urine WBC 4 Urine Squamous Epithelial Cells 9 Urine Amorphous Sediment RARE Urine Bacteria OCC Microscopic Urinalysis Comment CATH-CULTURE IND Date/Time Source Procedure Growth Status 12/16/17 13:10 Urine Catheterized Urine Urine Culture Pending Received Assessment/Plan Problem List: (1) 35 weeks gestation of ICD Codes: Z3A.35 - 35 weeks gestation of (2) PIH ( induced hypertension) ICD Codes: O13.9 - Gestational [-induced] hypertension without significant proteinuria, unspecified trimester (3) History of pre-eclampsia in prior , currently in third trimester ICD Codes: O09.293 - Supervision of with other poor reproductive or obstetric history, third trimester Assessment and Plan 31 yo with iup at 35w0d being admitted for pre-eclampsia workup 1)PIH r/o pre-e - serial BP, PIH labs and 24 hour urine ordered. Discussed need for delivery if severe features present. 2) H/o severe pre-e with G1- baseline 24 hour urine 87mg of protein. P:C 0.29 3) H/o CD- desires repeat 4) Vaginismus- does not tolerate pelvic exam/speculum; needs pap updated 5) Fetus- Male "Adam" EFW 4 lb on 12/07/17. S/p BMS and Magensium on . BPP today with elevated UA dopplers. Will repeat in hospital. 6) GBS unknown-will order rapid gbs. Sweta Pinon MD Dec 16, 2017 15:22
[2017-12-16 15:54] LABS: HEMATOCRIT 36.8 % (35.0-46.0); HEMOGLOBIN 12.7 GM/DL (11.6-15.3); MEAN CELL VOLUME 78.4 FL (80.0-100.0); MEAN CORPUSCULAR HEMOGLOBIN 27.1 PG (27.0-34.0); MEAN CORPUSCULAR HGB CONC 34.6 % (32.0-36.0); MEAN PLATELET VOLUME 9.5 FL (7.0-11.0); PLATELET COUNT 192 TH/MM3 (150-450); RED BLOOD COUNT 4.69 MIL/MM3 (4.00-5.30); RED CELL DISTRIBUTION WIDTH 15.3 % (11.6-17.2); WHITE BLOOD COUNT 16.6 TH/MM3 (4.0-11.0)
[2017-12-16 16:14] LABS: ALBUMIN 2.6 GM/DL (3.4-5.0); AST (GOT) 12 U/L (15-37); BICARBONATE 20.8 MEQ/L (21.0-32.0); BLOOD UREA NITROGEN 12 MG/DL (7-18); CALCIUM 8.8 MG/DL (8.5-10.1); CHLORIDE 108 MEQ/L (98-107); CREATININE 0.56 MG/DL (0.50-1.00); GLOMERULAR FILTRATION RATE 127 ML/MIN (>89); GLUCOSE,RANDOM 70 MG/DL (74-106); SODIUM (NA) 140 MEQ/L (136-145)
[2017-12-16 16:17] LABS: ALKALINE PHOSPHATASE 160 U/L (45-117); ALT (GPT) 14 U/L (10-53); TOTAL BILIRUBIN ADULT 0.3 MG/DL (0.2-1.0); TOTAL PROTEIN 6.9 GM/DL (6.4-8.2)
[2017-12-16] MEDS: SODIUM CHLORIDE 0.9% FLUSH 10 ML FLUSH IV FLUSH SCH (21:00)
[2017-12-17] VITALS (13 sets, daily range): BP systolic 122–130; BP diastolic 73–80; PULSE 72–118; RESP 18–20; TEMP 97.6–98.2
[2017-12-17 06:41] LABS: HEMATOCRIT 37.8 % (35.0-46.0); HEMOGLOBIN 12.8 GM/DL (11.6-15.3); MEAN CELL VOLUME 78.7 FL (80.0-100.0); MEAN CORPUSCULAR HEMOGLOBIN 26.6 PG (27.0-34.0); MEAN CORPUSCULAR HGB CONC 33.8 % (32.0-36.0); MEAN PLATELET VOLUME 9.2 FL (7.0-11.0); PLATELET COUNT 188 TH/MM3 (150-450); RED CELL DISTRIBUTION WIDTH 15.4 % (11.6-17.2); WHITE BLOOD COUNT 13.9 TH/MM3 (4.0-11.0)
[2017-12-17 07:17] LABS: ALBUMIN 2.5 GM/DL (3.4-5.0); AST (GOT) 10 U/L (15-37); BICARBONATE 21.2 MEQ/L (21.0-32.0); BLOOD UREA NITROGEN 13 MG/DL (7-18); CALCIUM 8.9 MG/DL (8.5-10.1); CHLORIDE 107 MEQ/L (98-107); CREATININE 0.46 MG/DL (0.50-1.00); GLOMERULAR FILTRATION RATE 159 ML/MIN (>89); GLUCOSE,RANDOM 91 MG/DL (74-106); SODIUM (NA) 140 MEQ/L (136-145)
[2017-12-17 07:21] LABS: ALKALINE PHOSPHATASE 161 U/L (45-117); ALT (GPT) 13 U/L (10-53); TOTAL BILIRUBIN ADULT 0.3 MG/DL (0.2-1.0); TOTAL PROTEIN 6.7 GM/DL (6.4-8.2)
[2017-12-17] MEDS: SODIUM CHLORIDE 0.9% FLUSH 10 ML FLUSH IV FLUSH SCH (09:00)
--- NOTE | 2017-12-17 09:42 | PD.OB.ANTE ---
Subjective Diagnosis: (1) PIH ( induced hypertension) Diagnosis: Principal (2) 35 weeks gestation of Diagnosis: Secondary (3) History of pre-eclampsia in prior , currently in third trimester Diagnosis: Secondary Interval History no complaints overnight; no headache, no vision changes, no edema, endorses good FM; no LOF or VB Antepartum ROS: Reports: movement normal, Denies: Loss of fluid, Vaginal bleeding, Contractions, Other Objective Vital Signs Vital Signs Date Time Temp Pulse Resp B/P (MAP) Pulse Ox O2 Delivery O2 Flow Rate FiO2 12/17/17 07:55 74 12/17/17 07:50 72 12/17/17 07:45 74 12/17/17 07:40 72 12/17/17 07:35 73 12/17/17 07:30 74 12/17/17 07:23 118 122/80 (94) 12/17/17 07:22 98.1 12/17/17 04:00 97.6 18 12/17/17 03:33 78 130/77 (94) 12/16/17 20:22 74 142/92 (109) 12/16/17 20:20 94 12/16/17 20:15 82 12/16/17 20:10 82 12/16/17 20:05 80 12/16/17 20:00 82 12/16/17 19:55 78 12/16/17 19:54 98.2 18 12/16/17 19:50 86 12/16/17 19:46 82 147/96 (113) 12/16/17 19:45 101 129/92 (104) 12/16/17 17:45 84 12/16/17 17:40 89 12/16/17 17:35 83 12/16/17 17:30 84 12/16/17 17:25 85 12/16/17 17:20 87 12/16/17 17:15 85 12/16/17 17:10 88 12/16/17 17:00 79 12/16/17 15:56 71 125/74 (91) 12/16/17 15:55 78 12/16/17 15:50 79 12/16/17 15:45 89 12/16/17 15:40 90 12/16/17 15:35 73 12/16/17 15:30 73 12/16/17 15:25 69 12/16/17 15:20 96 12/16/17 15:15 82 12/16/17 15:10 77 12/16/17 15:05 73 12/16/17 15:00 71 Lab & Micro Results Test 12/16/17 13:10 12/16/17 15:25 12/17/17 06:29 Urine Color LIGHT-YELLOW Urine Turbidity HAZY Urine pH 6.0 Urine Specific [place] 1.004 Urine Protein NEG mg/dL Urine Glucose (UA) NEG mg/dL Urine Ketones NEG mg/dL Urine Occult Blood NEG Urine Nitrite NEG Urine Bilirubin NEG Urine Urobilinogen LESS THAN 2.0 MG/DL Urine Leukocyte Esterase TRACE Urine RBC 1 /hpf Urine WBC 4 /hpf Urine Squamous Epithelial Cells 9 /hpf Urine Amorphous Sediment RARE Urine Bacteria OCC /hpf Microscopic Urinalysis Comment CATH-CULTURE IND White Blood Count 16.6 TH/MM3 13.9 TH/MM3 Red Blood Count 4.69 MIL/MM3 4.80 MIL/MM3 Hemoglobin 12.7 GM/DL 12.8 GM/DL Hematocrit 36.8 % 37.8 % Mean Corpuscular Volume 78.4 FL 78.7 FL Mean Corpuscular Hemoglobin 27.1 PG 26.6 PG Mean Corpuscular Hemoglobin Concent 34.6 % 33.8 % Red Cell Distribution Width 15.3 % 15.4 % Platelet Count 192 TH/MM3 188 TH/MM3 Mean Platelet Volume 9.5 FL 9.2 FL Blood Urea Nitrogen 12 MG/DL 13 MG/DL Creatinine 0.56 MG/DL 0.46 MG/DL Random Glucose 70 MG/DL 91 MG/DL Total Protein 6.9 GM/DL 6.7 GM/DL Albumin 2.6 GM/DL 2.5 GM/DL Calcium Level 8.8 MG/DL 8.9 MG/DL Uric Acid 3.7 MG/DL 3.6 MG/DL Alkaline Phosphatase 160 U/L 161 U/L Aspartate Amino Transf (AST/SGOT) 12 U/L 10 U/L Alanine Aminotransferase (ALT/SGPT) 14 U/L 13 U/L Total Bilirubin 0.3 MG/DL 0.3 MG/DL Sodium Level 140 MEQ/L 140 MEQ/L Potassium Level 3.8 MEQ/L 4.1 MEQ/L Chloride Level 108 MEQ/L 107 MEQ/L Carbon Dioxide Level 20.8 MEQ/L 21.2 MEQ/L Anion Gap 11 MEQ/L 12 MEQ/L Estimat Glomerular Filtration Rate 127 ML/MIN 159 ML/MIN Date/Time Source Procedure Growth Status 12/16/17 13:10 Urine Catheterized Urine Urine Culture Pending Received Physical Exam GENERAL: Well-nourished, well-developed patient. CARDIOVASCULAR: Regular rate and rhythm without murmurs, gallops, or rubs. RESPIRATORY: Breath sounds equal bilaterally. No accessory muscle use. ABDOMEN/GI: Abdomen soft, non-tender. Fundus: c/w dates GENITOURINARY: External Genitalia: deferred FHT's: Category: [I] Baseline: [120s-130s] Reactive: [y] Variability: [y] Decels: [n] EXTREMITIES: No cyanosis or edema, non-tender, without signs of DVT. Assessment and Plan Problem List: (1) 35 weeks gestation of ICD Codes: Z3A.35 - 35 weeks gestation of (2) PIH ( induced hypertension) ICD Codes: O13.9 - Gestational [-induced] hypertension without significant proteinuria, unspecified trimester (3) History of pre-eclampsia in prior , currently in third trimester ICD Codes: O09.293 - Supervision of with other poor reproductive or obstetric history, third trimester Assessment and Plan 31 yo with iup at 35w1d being admitted for pre-eclampsia workup in setting of gestational hypertension 1)PIH r/o pre-e - serial BP, PIH labs and 24 hour urine ordered. Discussed need for delivery if severe features present. - labs unremarkable, 24h urine due around 1300p today, pt asymptomatic currently - 8/8 BPP on 12/16/17; R NST today; weight is IUGR <10%tile but normal dopplers on 12/16/17 scan, daily NSTs while inpt and FHTs q4h 2) H/o severe pre-e with G1- baseline 24 hour urine 87mg of protein. P:C 0.29 3) H/o CD- desires repeat (no tubal); T&S ordered on admission 4) Vaginismus- does not tolerate pelvic exam/speculum; needs pap updated 5) Fetus- Male "Adam" EFW 4 lb on 12/07/17. S/p BMS and Magensium on . 8/8 BPP 12/16/17 with normal dopplers on hospital eval 6) dispo: not meeting criteria, await 24h urine results Suzi Thorpe MD Dec 17, 2017 09:42
[2017-12-17] MEDS: MULTIVIT/MIN/PREN/FOL AC/IRON PRENATAL TAB PO SCH (10:06)
[2017-12-17 14:43] LABS: CREATININE 24 HOUR, URINE 1.12 GM/24HR (0.63-2.50)
--- NOTE | 2017-12-17 23:21 | HHI.PR ---
Addendum to Inpatient Note Addendum Reason: Additional Documentation Additional Information Consult - Threatened delivery at 35 weeks with estimated weight of ~ 1800 grams due to maternal pre-eclampsia. Poor growth over the last 2 weeks. Possible delivery in the next 24-72 hours. Previous child 4 years ago, male delivered at [facility] at 3 lb 15 oz. Evidently baby went home in 3 days. Mom relates she had wanted to breast feed "But it didn't work and I didn't really have help". Other than that relates uneventful hospital and course. There is no history of genetic or inherited conditions. Mom is taking vitamins. Discussion: Nurse Practitioner met with mother regarding threatened delivery at 35 weeks gestation secondary to maternal pre-eclampsia. This consultation included generalized care of the baby including criteria for admission to NICU including < 36 weeks gestation and less than 2000 grams. Discussed common issues related to late infants including respiratory distress, feeding issues, difficulties in maintaining temperature and blood sugars. The Nurse Practitioner reviewed the expectations with delivery of an under these circumstances including delivery room atmosphere and stabilization. There was a review of nutritional support challenges including IV and gavage feeding. Discussed need for possible supplemental heat source of warmer or isolette. Breast feeding was encouraged, and mom was informed she would be pumping within one hour of delivery and the first 3 oral feeds would be at the breast. Explained that infant is at risk for hyperbilirubinemia and may require treatment with phototherapy. Support systems in [facility] at [facility] were reviewed and included , Case Management and Ministry which the family may utilize. Expected discharge would be based on feeding progress, weight gain, stable blood sugars and temperatures, no apnea/bradycardia/desats and no need for phototherapy. Parents expressed understanding of information. Questions were welcomed and addressed. Will continue to follow with OB and will anticipate care of baby if delivered at < 2 kg and < 36 weeks gestation. Greater than 50% of the consultation time was spent with the patient. Total time of consult was 50 minutes. Lazara Grande Dec 17, 2017 23:21
[2017-12-18] VITALS (25 sets, daily range): BP systolic 125–150; BP diastolic 68–88; PULSE 80–193; RESP 17–18; TEMP 98–98.5
[2017-12-18 05:18] LABS: AUTOMATED NEUTROPHIL # 12.5 TH/MM3 (1.8-7.7); BASOPHIL % 0.1 % (0.0-2.0); EOSINOPHIL # 0.2 TH/MM3 (0-0.4); EOSINOPHIL % 1.1 % (0.0-4.0); HEMATOCRIT 39.1 % (35.0-46.0); LYMPH % 13.6 % (9.0-44.0); LYMPHOCYTE # 2.2 TH/MM3 (1.0-4.8); MEAN CELL VOLUME 79.4 FL (80.0-100.0); MEAN CORPUSCULAR HEMOGLOBIN 26.5 PG (27.0-34.0); MEAN CORPUSCULAR HGB CONC 33.3 % (32.0-36.0); MEAN PLATELET VOLUME 9.1 FL (7.0-11.0); MONO % 7.7 % (0.0-8.0); MONOCYTE # 1.3 TH/MM3 (0-0.9); NEUT % 77.5 % (16.0-70.0); PLATELET COUNT 189 TH/MM3 (150-450); RED BLOOD COUNT 4.92 MIL/MM3 (4.00-5.30); RED CELL DISTRIBUTION WIDTH 15.6 % (11.6-17.2); WHITE BLOOD COUNT 16.2 TH/MM3 (4.0-11.0)
[2017-12-18 05:36] LABS: ALBUMIN 2.5 GM/DL (3.4-5.0); AST (GOT) 11 U/L (15-37); BICARBONATE 20.8 MEQ/L (21.0-32.0); BLOOD UREA NITROGEN 15 MG/DL (7-18); CHLORIDE 107 MEQ/L (98-107); CREATININE 0.56 MG/DL (0.50-1.00); GLOMERULAR FILTRATION RATE 127 ML/MIN (>89); GLUCOSE,RANDOM 89 MG/DL (74-106); SODIUM (NA) 139 MEQ/L (136-145)
[2017-12-18 05:38] LABS: ALT (GPT) 13 U/L (10-53)
[2017-12-18 05:39] LABS: ALKALINE PHOSPHATASE 171 U/L (45-117); TOTAL BILIRUBIN ADULT 0.2 MG/DL (0.2-1.0); TOTAL PROTEIN 6.7 GM/DL (6.4-8.2)
--- NOTE | 2017-12-18 07:55 | PD.OB.ANTE ---
Subjective Diagnosis: (1) PIH ( induced hypertension) Diagnosis: Principal (2) 35 weeks gestation of Diagnosis: Secondary (3) History of pre-eclampsia in prior , currently in third trimester Diagnosis: Secondary Interval History denies CALVO, vision changes, RUQ pain, nausea/vomiting; endorses good FM, feeling well Antepartum ROS: Reports: movement normal, Denies: New complaints, Loss of fluid, Vaginal bleeding, Contractions, Other Objective Vital Signs Vital Signs Date Time Temp Pulse Resp B/P (MAP) Pulse Ox O2 Delivery O2 Flow Rate FiO2 12/17/17 20:00 98.2 12/17/17 16:42 98.1 20 12/17/17 13:00 20 12/17/17 13:00 98.1 12/17/17 13:00 75 126/73 (90) 12/17/17 07:55 74 12/17/17 07:50 72 Lab & Micro Results Test 12/17/17 13:00 12/18/17 04:36 Urine Total Volume 24 Hours 3000 ML Urine Creatinine 24 Hour 1.12 GM/24HR Urine Total Protein 24 Hour 345 MG/24HR White Blood Count 16.2 TH/MM3 Red Blood Count 4.92 MIL/MM3 Hemoglobin 13.0 GM/DL Hematocrit 39.1 % Mean Corpuscular Volume 79.4 FL Mean Corpuscular Hemoglobin 26.5 PG Mean Corpuscular Hemoglobin Concent 33.3 % Red Cell Distribution Width 15.6 % Platelet Count 189 TH/MM3 Mean Platelet Volume 9.1 FL Neutrophils (%) (Auto) 77.5 % Lymphocytes (%) (Auto) 13.6 % Monocytes (%) (Auto) 7.7 % Eosinophils (%) (Auto) 1.1 % Basophils (%) (Auto) 0.1 % Neutrophils # (Auto) 12.5 TH/MM3 Lymphocytes # (Auto) 2.2 TH/MM3 Monocytes # (Auto) 1.3 TH/MM3 Eosinophils # (Auto) 0.2 TH/MM3 Basophils # (Auto) 0.0 TH/MM3 CBC Comment DIFF FINAL Differential Comment Blood Urea Nitrogen 15 MG/DL Creatinine 0.56 MG/DL Random Glucose 89 MG/DL Total Protein 6.7 GM/DL Albumin 2.5 GM/DL Calcium Level 9.0 MG/DL Uric Acid 3.7 MG/DL Alkaline Phosphatase 171 U/L Aspartate Amino Transf (AST/SGOT) 11 U/L Alanine Aminotransferase (ALT/SGPT) 13 U/L Total Bilirubin 0.2 MG/DL Sodium Level 139 MEQ/L Potassium Level 3.9 MEQ/L Chloride Level 107 MEQ/L Carbon Dioxide Level 20.8 MEQ/L Anion Gap 11 MEQ/L Estimat Glomerular Filtration Rate 127 ML/MIN Date/Time Source Procedure Growth Status 12/16/17 13:10 Urine Catheterized Urine Urine Culture - Preliminary IMMATURE GROWTH - REINCUBATE Resulted Physical Exam GENERAL: Well-nourished, well-developed patient. CARDIOVASCULAR: Regular rate and rhythm without murmurs, gallops, or rubs. RESPIRATORY: Breath sounds equal bilaterally. No accessory muscle use. ABDOMEN/GI: Abdomen soft, non-tender. Fundus: [c/w dates] GENITOURINARY: External Genitalia: deferred FHT's: Category: [I] Baseline: [130s] Reactive: [y] Variability: [y] Decels: [n] EXTREMITIES: No cyanosis, non-tender, without signs of DVT. Assessment and Plan Problem List: (1) PIH ( induced hypertension) ICD Codes: O13.9 - Gestational [-induced] hypertension without significant proteinuria, unspecified trimester (2) 35 weeks gestation of ICD Codes: Z3A.35 - 35 weeks gestation of (3) History of pre-eclampsia in prior , currently in third trimester ICD Codes: O09.293 - Supervision of with other poor reproductive or obstetric history, third trimester Assessment and Plan 31 yo with iup at 35w2d admitted 12/16/17 for pre-eclampsia workup in setting of gestational hypertension, now ruled in based on 24h urine protein 1)PreEclampsia - continue serial BP monitoring (normal to mild range since admission), PIH labs normal/stable, 24h urine with rules in for preeclampsia based on proteinuria; on review of growth scan from office 2 weeks ago and comparison to scan on 12/16/17 essentially no growth with new finding of IUGR on 12/16/17; normal dopplers, 03/29 BPP, R NST qshift since admission; discussed with patient recommendation for delivery if any signs of severity; is s/p NICU consult on 12/17/17, is for delivery via due to history 2) H/o severe pre-e with G1- baseline 24 hour urine 87mg of protein. Now with > 300mg protein on 12/17/17 3) H/o CD- desires repeat (no tubal); T&S ordered on admission 4) Vaginismus- does not tolerate pelvic exam/speculum; needs pap updated 5) Fetus- Male "Adam" EFW 3#14oz on 12/16/17; JANIE 8.7cm, placenta posterior & grade 3. S/p BMS and Magensium on 12/07/17. 8/8 BPP 12/16/17 with normal dopplers on hospital eval 12/16/17 6) dispo: not meeting criteria, anticipate stay until delivery then 3d PP due to Suzi Thorpe MD Dec 18, 2017 07:55
[2017-12-18] MEDS ORDERED: CITRIC ACID-SODIUM CITRATE LIQ 30 ML UDC PO SCH (09:45)
[2017-12-18] MEDS: MULTIVIT/MIN/PREN/FOL AC/IRON PRENATAL TAB PO SCH (11:03)
[2017-12-18] MEDS: SODIUM CHLORIDE 0.9% FLUSH 10 ML FLUSH IV FLUSH SCH ×2 (11:07→23:08)
[2017-12-19] VITALS (11 sets, daily range): BP systolic 115–138; BP diastolic 69–91; PULSE 67–87; RESP 18–20; TEMP 98.1–98.5; O2SAT 97–98
[2017-12-19 05:56] LABS: AUTOMATED NEUTROPHIL # 10.6 TH/MM3 (1.8-7.7); BASOPHIL % 0.2 % (0.0-2.0); EOSINOPHIL # 0.2 TH/MM3 (0-0.4); EOSINOPHIL % 1.1 % (0.0-4.0); HEMATOCRIT 37.9 % (35.0-46.0); HEMOGLOBIN 12.7 GM/DL (11.6-15.3); LYMPH % 15.5 % (9.0-44.0); LYMPHOCYTE # 2.2 TH/MM3 (1.0-4.8); MEAN CELL VOLUME 79.8 FL (80.0-100.0); MEAN CORPUSCULAR HEMOGLOBIN 26.8 PG (27.0-34.0); MEAN CORPUSCULAR HGB CONC 33.6 % (32.0-36.0); MEAN PLATELET VOLUME 9.4 FL (7.0-11.0); MONO % 7.7 % (0.0-8.0); MONOCYTE # 1.1 TH/MM3 (0-0.9); NEUT % 75.5 % (16.0-70.0); PLATELET COUNT 190 TH/MM3 (150-450); RED BLOOD COUNT 4.76 MIL/MM3 (4.00-5.30); RED CELL DISTRIBUTION WIDTH 15.6 % (11.6-17.2); WHITE BLOOD COUNT 14.1 TH/MM3 (4.0-11.0)
[2017-12-19] MEDS ORDERED: ceFAZolin 2 GM PREMIX 50 ML IV SCH (06:00)
[2017-12-19] MEDS ORDERED: LACTATED RINGER'S 1000 ML INJ 1,000 ML IV SCH ×2 (06:00→15:11)
[2017-12-19] MEDS ORDERED: LACTATED RINGER'S 1000 ML INJ 1,000 ML IV ONE (06:00)
[2017-12-19 06:17] LABS: ALBUMIN 2.5 GM/DL (3.4-5.0); BICARBONATE 21.2 MEQ/L (21.0-32.0); BLOOD UREA NITROGEN 13 MG/DL (7-18); CHLORIDE 107 MEQ/L (98-107); CREATININE 0.58 MG/DL (0.50-1.00); GLOMERULAR FILTRATION RATE 122 ML/MIN (>89); GLUCOSE,RANDOM 97 MG/DL (74-106); SODIUM (NA) 139 MEQ/L (136-145)
[2017-12-19 06:18] LABS: ALT (GPT) 13 U/L (10-53); AST (GOT) 12 U/L (15-37)
[2017-12-19 06:21] LABS: ALKALINE PHOSPHATASE 169 U/L (45-117); TOTAL BILIRUBIN ADULT 0.3 MG/DL (0.2-1.0); TOTAL PROTEIN 6.9 GM/DL (6.4-8.2)
[2017-12-19] MEDS ORDERED: ACETAMINOPHEN 1000 MG/100 ML 100 ML IV ONE ×2 (06:53→10:15)
[2017-12-19] MEDS ORDERED: MORPHINE SULFATE PF 5 MG/10 ML VIAL ONE (06:53)
--- NOTE | 2017-12-19 08:27 | PD.OB.ANTE ---
Subjective Diagnosis: (1) PIH ( induced hypertension) Diagnosis: Principal (2) 35 weeks gestation of Diagnosis: Secondary (3) History of pre-eclampsia in prior , currently in third trimester Diagnosis: Secondary Interval History good movemetn, no ctx or vb/lof. No current CALVO or blurry vision. Objective Vital Signs Vital Signs Date Time Temp Pulse Resp B/P (MAP) Pulse Ox O2 Delivery O2 Flow Rate FiO2 12/19/17 05:41 87 130/86 (101) 12/19/17 05:40 98.1 12/19/17 05:40 18 12/18/17 23:04 98.3 88 18 125/68 (87) 12/18/17 23:00 88 12/18/17 22:50 90 12/18/17 22:45 89 12/18/17 22:40 91 12/18/17 22:35 93 12/18/17 22:30 92 12/18/17 22:25 99 12/18/17 22:20 94 12/18/17 20:08 98.5 12/18/17 20:07 18 12/18/17 20:06 97 142/85 (104) 12/18/17 16:10 98.4 17 12/18/17 14:00 18 12/18/17 11:03 97 127/70 (89) 12/18/17 11:00 98.0 12/18/17 09:50 87 12/18/17 09:35 86 12/18/17 09:30 86 12/18/17 09:28 98.0 18 12/18/17 09:25 80 12/18/17 09:20 80 12/18/17 09:15 82 12/18/17 09:10 81 12/18/17 09:05 193 150/88 (108) Lab & Micro Results Test 12/19/17 05:29 White Blood Count 14.1 TH/MM3 Red Blood Count 4.76 MIL/MM3 Hemoglobin 12.7 GM/DL Hematocrit 37.9 % Mean Corpuscular Volume 79.8 FL Mean Corpuscular Hemoglobin 26.8 PG Mean Corpuscular Hemoglobin Concent 33.6 % Red Cell Distribution Width 15.6 % Platelet Count 190 TH/MM3 Mean Platelet Volume 9.4 FL Neutrophils (%) (Auto) 75.5 % Lymphocytes (%) (Auto) 15.5 % Monocytes (%) (Auto) 7.7 % Eosinophils (%) (Auto) 1.1 % Basophils (%) (Auto) 0.2 % Neutrophils # (Auto) 10.6 TH/MM3 Lymphocytes # (Auto) 2.2 TH/MM3 Monocytes # (Auto) 1.1 TH/MM3 Eosinophils # (Auto) 0.2 TH/MM3 Basophils # (Auto) 0.0 TH/MM3 CBC Comment DIFF FINAL Differential Comment Blood Urea Nitrogen 13 MG/DL Creatinine 0.58 MG/DL Random Glucose 97 MG/DL Total Protein 6.9 GM/DL Albumin 2.5 GM/DL Calcium Level 9.0 MG/DL Uric Acid 3.7 MG/DL Alkaline Phosphatase 169 U/L Aspartate Amino Transf (AST/SGOT) 12 U/L Alanine Aminotransferase (ALT/SGPT) 13 U/L Total Bilirubin 0.3 MG/DL Sodium Level 139 MEQ/L Potassium Level 4.0 MEQ/L Chloride Level 107 MEQ/L Carbon Dioxide Level 21.2 MEQ/L Anion Gap 11 MEQ/L Estimat Glomerular Filtration Rate 122 ML/MIN Date/Time Source Procedure Growth Status 12/16/17 13:10 Urine Catheterized Urine Urine Culture - Final 50-100,000 CFU/ML MIXED GRAM POSITIVE... Complete Physical Exam GENERAL: Well-nourished, well-developed patient. CARDIOVASCULAR: Regular rate and rhythm without murmurs, gallops, or rubs. RESPIRATORY: Breath sounds equal bilaterally. No accessory muscle use. ABDOMEN/GI: Abdomen soft, non-tender. Fundus: [-] GENITOURINARY: External Genitalia: intact and normal in appearance =defer FHT's: CAT I EXTREMITIES: No cyanosis or edema, non-tender, without signs of DVT. Assessment and Plan Problem List: (1) PIH ( induced hypertension) ICD Codes: O13.9 - Gestational [-induced] hypertension without significant proteinuria, unspecified trimester (2) 35 weeks gestation of ICD Codes: Z3A.35 - 35 weeks gestation of (3) History of pre-eclampsia in prior , currently in third trimester ICD Codes: O09.293 - Supervision of with other poor reproductive or obstetric history, third trimester Assessment and Plan 31 yo with iup at 35w3d admitted 12/16/17 for pre-eclampsia workup in setting of gestational hypertension, now ruled in based on 24h urine protein 1)PreEclampsia - continue serial BP monitoring (normal to mild range since admission), PIH labs normal/stable, 24h urine with rules in for preeclampsia based on proteinuria; on review of growth scan from office 2 weeks ago and comparison to scan on 12/16/17 essentially no growth with new finding of IUGR on 12/16/17; normal dopplers, 8/8 BPP, R NST qshift since admission; discussed with patient recommendation for delivery if any signs of severity; is s/p NICU consult on 12/17/17, is for delivery via today due to iugr and pree 2) H/o severe pre-e with G1- baseline 24 hour urine 87mg of protein. Now with > 300mg protein on 12/17/17 3) H/o CD- desires repeat (no tubal); T&S ordered on admission 4) Vaginismus- does not tolerate pelvic exam/speculum; needs pap updated 5) Fetus- Male "Adam" EFW 3#14oz on 12/16/17; JANIE 8.7cm, placenta posterior & grade 3. S/p BMS and Magnesium on 12/07/17. 8/8 BPP 12/16/17 with normal dopplers on hospital eval 12/16/17 6) dispo: not meeting criteria, anticipate stay until delivery then 3d PP due to Sweta Pinon MD Dec 19, 2017 08:27
[2017-12-19] MEDS ORDERED: EPIDURAL-DIPHENHYDRAMINE HCL 50 MG CAP PO PRN (08:35)
[2017-12-19] MEDS ORDERED: EPIDURAL-NALOXONE HCL 0.4 MG/ML AMP IV PUSH PRN (08:35)
[2017-12-19] MEDS ORDERED: EPIDURAL-DIPHENHYDRAMINE HCL 50 MG/ML VIAL IV PUSH PRN (08:35)
[2017-12-19] MEDS ORDERED: EPIDURAL-DO NOT ADMINISTER ANTICOAGULANTS PRN (08:35)
[2017-12-19] MEDS ORDERED: EPIDURAL-NO SYSTEMIC NARCOTICS PRN (08:35)
[2017-12-19] MEDS ORDERED: BUPIVACAINE LIPOSOME PF 1.3% 20 ML VIAL ONE (09:49)
[2017-12-19] MEDS ORDERED: SODIUM CHLORIDE 0.9% 20 ML VIAL ONE (09:50)
--- NOTE | 2017-12-19 10:10 | PD.OB.DELI ---
Procedure Note Section Procedure Pre Op Diagnosis: (1) Pre-eclampsia (2) History of pre-eclampsia in prior , currently in third trimester (3) 35 weeks gestation of (4) History of delivery Post Op Diagnosis: (1) Pre-eclampsia (2) 35 weeks gestation of (3) History of delivery (4) Pelvic adhesive disease Performed by Sweta Pinon MD Procedure: Primary Low Transverse Sec Indication for delivery: Desired elective repeat , Maternal medical problems Previous condition: None Informed consent obtained: For anesthesia, For procedure Confirmed correct: Procedure, Site, Time-out taken Anesthesia: Spinal Medication prior to procedure: As documented in eMAR Monitoring during procedure: Blood pressure monitoring, Pulse oximetry Urinary catheter: Inserted using sterile technique, To dependent drainage, ml urine output (200) Sterile preparation: With 2% chlorexidine (Hibiclens) Position: Supine with wedge to right side, Supine with safety belt applied Operative Features Skin Incision: Pfannenstiel Uterine Incision: Low transverse w/knife / blunt ext Membranes Ruptured: Appearance of fluid (clear) Presentation: Occiput anterior Delivery date: Dec 19, 2017 Delivery time: 09:07 Delivery of infant: Uneventful One Minute : 8 Five Minute : 9 Weight: 2000g Status of infant: Viable, Cord blood, Nursery present Placenta delivered: Intact, Sent to pathology Medications: Antibiotics, Oxytocin Estimated blood loss: 400ml Procedure tolerated: Well Maternal Condition: Stable Condition: Stable Procedure in detail dictated Sweta Pinon MD Dec 19, 2017 10:10
--- NOTE | 2017-12-19 10:14 | HHI.DCPOC ---
Discharge Care Plan Diagnosis: (1) Pre-eclampsia (2) Pelvic adhesive disease (3) History of delivery Your Health Problems Are: Incisions/drains delivery Report Symptoms to Your Doctor -Temperature above 100.5 degrees -Redness, of incision or excessive or foul smelling drainage -Unusual pain or calf pain -Increased vaginal bleeding -Painful or difficulty urinating -Feelings of extreme sadness or anxiety after 2 weeks Goals to Promote Your Health * To prevent worsening of your condition and complications * To maintain your health at the optimal level Directions to Meet Your Goals Take your medications as prescribed Follow your dietary instruction Follow activity as directed Ensure plenty of rest for recovery Drink fluids for hydration Keep your appointments as scheduled Take your immunizations and boosters as scheduled If your symptoms worsen call your PCP, if no PCP go to Urgent Care Center or Emergency Room Smoking is Dangerous to Your Health. Avoid second hand smoke Call the 24-hour crisis hotline for domestic abuse at Sweta Pinon MD Dec 19, 2017 10:14
[2017-12-19] MEDS ORDERED: SODIUM CHLORIDE 0.9% FLUSH 10 ML FLUSH IV FLUSH PRN (10:15)
[2017-12-19] MEDS ORDERED: SIMETHICONE 80 MG CHEWABLE TAB PO PRN (10:15)
[2017-12-19] MEDS ORDERED: ONDANSETRON HCL 4 MG/2 ML VIAL IV PUSH PRN (10:15)
[2017-12-19] MEDS ORDERED: OXYTOCIN 30 UNITS-500ML PREMIX 500 ML IV ONE (10:15)
[2017-12-19] MEDS ORDERED: ZOLPIDEM TARTRATE 5 MG TAB PO PRN (10:15)
[2017-12-19] MEDS ORDERED: oxyCODONE/ACETAMINOPHEN 5 MG/325 MG TAB PO PRN (10:15)
[2017-12-19] MEDS ORDERED: OXYTOCIN 30 UNITS-500ML PREMIX 500 ML ONE (11:14)
[2017-12-19] MEDS ORDERED: SODIUM CHLORIDE 0.9% 10 ML VIAL IV ONE (12:00)
[2017-12-19] MEDS ORDERED: PHENYLEPH/NS 1000 MCG/10 ML SYR IV ONE (12:00)
[2017-12-19] MEDS ORDERED: ONDANSETRON HCL 4 MG/2 ML VIAL IV ONE (12:00)
[2017-12-19] MEDS ORDERED: OXYTOCIN 10 UNIT/ML AMP IV ONE (12:00)
[2017-12-19] MEDS ORDERED: DEXAMETHASONE SOD PHOS 4 MG/ML VIAL IV ONE (12:00)
--- NOTE | 2017-12-19 13:22 | MP ---
cc: Sweta Pinon MD DATE OF OPERATION: 12/19/2017 PREOPERATIVE DIAGNOSES: 1. Preeclampsia. 2. Intrauterine growth restriction. 3. Intrauterine at 35 weeks and 3 days. 4. History of delivery and desired repeat. POSTOPERATIVE DIAGNOSES: 1. Preeclampsia. 2. Intrauterine growth restriction. 3. Intrauterine at 35 weeks and 3 days. 4. History of delivery and desired repeat. 5. Adhesive disease. PROCEDURE PERFORMED: Repeat low transverse delivery with lysis of adhesions. INDICATIONS: The patient is a 31-year-old G2, P0-1-0-1 with an intrauterine at 35 weeks and 3 days, who was admitted for a preeclampsia workup. She has a history of severe preeclampsia with prior . She has had a prior admission for preeclampsia, but ruled out last week. This week she was readmitted with elevated blood pressures in the office, elevated uterine artery Dopplers and a grade III placenta. She had a repeat ultrasound at [facility] that did note the baby being with normal uterine artery Dopplers, but weight was noted to be 3 pounds 14 ounces. Previous growth ultrasound in the office approximately 2 weeks ago noted the to be 4 pounds. Given that there was no growth since the previous scan, she was diagnosed with an intrauterine growth restriction. Her 24-hour urine also returned to over 300 mg of protein and her blood pressures were elevated. A decision was made to proceed with repeat delivery. She did have a consultation with the NICU team. SURGEON: Sweta Pinon MD. FAMILY PRACTICE MD: [place] staff. ANESTHESIA: Spinal. ANTIBIOTICS: Ancef 2 grams IV given pre-incision. DVT PROPHYLAXIS: Bilateral lower extremity SCDs. COMPLICATIONS: None. COUNTS: Correct x 3. SPECIMENS: Placenta to pathology, cord blood. OPERATIVE FINDINGS: Viable male with Apgars of 8 and 9 at 1 minute and 5 minutes respectively. time 0907. Weight 2000 grams, taken to nursery. MATERNAL FINDINGS: Omental adhesions to anterior abdominal wall, adhesive band from uterus to anterior abdominal wall, adhesions of the bladder to the lower uterine segment. Normal tubes and ovaries. ESTIMATED BLOOD LOSS: 400 mL. URINE OUTPUT: 200 mL of clear yellow urine at the end of the case. INTRAVENOUS FLUIDS: 1750 mL. PROCEDURE IN DETAIL: After giving informed consent, the patient was taken to the operating room where spinal anesthesia was administered without complication. She was placed in the supine position with a slight leftward tilt and a Turner catheter was placed in sterile fashion. SCDs were placed. The abdomen was prepped and draped in normal sterile fashion. Anesthesia was noted to be adequate. A Pfannenstiel skin incision was made at the previous incision site with the scalpel and carried down to the underlying layer of fascia with the Bovie. The fascia was incised in the midline. This incision was extended bilaterally with Liang scissors. The superior aspect of the fascia was grasped with Shane clamps, elevated, and the rectus muscle dissected off with Liang scissors. The same was repeated inferiorly. The rectus muscles were bluntly. The peritoneum was entered bluntly. This was a small incision. There was noted to be an omental adhesion to the peritoneum. This was taken down with the Bovie. The peritoneal incision was then slightly extended. A dense adhesive band from the uterus was noted. A small window in the peritoneum was created and 2 Courtney clamps were placed across the uterine adhesive band. This was transected with the Bovie and doubly suture ligated with a fore and aft followed by a free tie of #1 chromic. Good hemostasis was noted. The peritoneal incision was then further extended to have a good visualization of the lower uterine segment. The filmy adhesive bands of the bladder to the lower uterine segment were taken down with Metzenbaum scissors. A bladder blade was then placed and a low transverse uterine incision was made with a scalpel. The head was grasped, brought to the level of the hysterotomy. Gentle fundal pressure was used to deliver the head. Spontaneous rupture of membranes occurred. The infant readily delivered in its entirety. The baby was bulb suctioned. Delayed cord clamping was performed. Cord blood was collected and an immediate IV infusion of Pitocin was started after delivery of the infant. The was handed off to waiting pediatricians. The placenta was delivered with gentle cord traction and uterine massage. The placenta was sent for pathology. All membranes, clots and debris were removed from the uterus. The uterus was exteriorized and a #1 chromic in a running fashion, followed by an imbricating layer was used to close the uterus. Good hemostasis was noted. The posterior cul-de-sac was irrigated and suctioned. The uterus was returned to the abdomen. The anterior cul-de-sac was irrigated and suctioned. Mireya was placed over the sites of the prior adhesions. Interceed was placed over the hysterotomy. The peritoneum was closed with 2-0 chromic in a running fashion. The fascia was closed with #1 Vicryl in a running fashion. Subcutaneous tissue was irrigated and suctioned. Hemostasis was maintained with the Bovie. The next layer was closed with 2-0 chromic in a running fashion. The skin was closed with 3-0 Monocryl in a subcuticular fashion. A pressure dressing was placed. The patient tolerated the procedure well. DISPOSITION: Stable to PACU. Sweta Pinon MD PCE/DL/ , 10:07 AM , 10:52 AM
[2017-12-19] MEDS ORDERED: OXYTOCIN 30 UNITS-500ML PREMIX 500 ML IV PRN (15:15)
[2017-12-19] MEDS ORDERED: SODIUM CHLORIDE 0.9% FLUSH 10 ML FLUSH IV FLUSH SCH (21:00)
[2017-12-19] MEDS: DOCUSATE SODIUM 50 MG/SENNA 8.6 MG TAB PO PRN (23:48)
[2017-12-19] MEDS: IBUPROFEN 600 MG TAB PO PRN (23:48)
[2017-12-20 00:02] VITALS: BP 115/74; PULSE 94; RESP 18; TEMP 99.3
[2017-12-20 04:15] VITALS: BP 106/72; PULSE 76; RESP 18; TEMP 98.3
[2017-12-20 05:54] LABS: AUTOMATED NEUTROPHIL # 14.2 TH/MM3 (1.8-7.7); BASOPHIL % 0.2 % (0.0-2.0); EOSINOPHIL % 0.2 % (0.0-4.0); HEMATOCRIT 33.4 % (35.0-46.0); HEMOGLOBIN 11.2 GM/DL (11.6-15.3); LYMPH % 11.2 % (9.0-44.0); MEAN CELL VOLUME 79.8 FL (80.0-100.0); MEAN CORPUSCULAR HEMOGLOBIN 26.7 PG (27.0-34.0); MEAN CORPUSCULAR HGB CONC 33.5 % (32.0-36.0); MEAN PLATELET VOLUME 9.3 FL (7.0-11.0); MONO % 7.7 % (0.0-8.0); MONOCYTE # 1.4 TH/MM3 (0-0.9); NEUT % 80.7 % (16.0-70.0); PLATELET COUNT 183 TH/MM3 (150-450); RED BLOOD COUNT 4.19 MIL/MM3 (4.00-5.30); RED CELL DISTRIBUTION WIDTH 15.6 % (11.6-17.2); WHITE BLOOD COUNT 17.6 TH/MM3 (4.0-11.0)
[2017-12-20 07:50] VITALS: BP 120/73; PULSE 80; RESP 18; TEMP 98.1
[2017-12-20] MEDS: oxyCODONE/ACETAMINOPHEN 5 MG/325 MG TAB PO PRN ×3 (08:10→23:02)
[2017-12-20] MEDS: IBUPROFEN 600 MG TAB PO PRN ×3 (08:10→23:01)
--- NOTE | 2017-12-20 08:34 | HHI.OB ---
Subjective Post Operative Day: 1 Remarks doing well, ambulating, eating, passing flatus. Turner out yesterday adn voiding w/o complications. Had TAP block and doing well w pain control Objective Vitals/I&O Vital Signs Date Time Temp Pulse Resp B/P (MAP) Pulse Ox O2 Delivery O2 Flow Rate FiO2 12/20/17 04:15 98.3 76 18 106/72 (83) 12/20/17 00:02 99.3 94 18 115/74 (88) 12/19/17 20:02 98.5 85 18 115/69 (84) 12/19/17 15:15 98.2 82 20 122/82 (95) 12/19/17 12:00 98.3 67 18 97 12/19/17 12:00 138/89 (105) 12/19/17 11:02 98.2 71 18 97 12/19/17 11:00 132/91 (105) 12/19/17 10:55 76 18 123/81 (95) 98 12/19/17 10:40 18 98 12/19/17 10:26 136/76 (96) 12/19/17 10:24 79 18 98 Result Diagram: 12/20/17 0451 12/19/17 0529 Objective Remarks GENERAL: Well-nourished, well-developed patient. CARDIOVASCULAR: Regular rate and rhythm without murmurs, gallops, or rubs. RESPIRATORY: Breath sounds equal bilaterally. No accessory muscle use. ABDOMEN/GI: Abdomen soft, non-tender, bowel sounds present. Incision: dressing Clean, dry and intact. Fundus: Firm, non-tender at umbilicus. GENITOURINARY: Light to moderate bleeding. EXTREMITIES: No cyanosis or edema, non-tender, without signs of DVT. Medications and IVs Current Medications Medications (Trade) Dose Ordered Sig/Allyn Route Start Time Stop Time Status Last Admin Lactated Ringer's 1,000 ml @ 100 mls/hr Q10H IV 12/19/17 15:11 12/20/17 11:10 12/19/17 17:42 Oxytocin 500 ml @ 100 mls/hr UNSCH X1 PRN IV 12/19/17 15:15 12/20/17 15:14 (NS Flush) 2 ml BID IV FLUSH 12/19/17 21:00 (NS Flush) 2 ml UNSCH PRN IV FLUSH 12/19/17 10:15 (Mylicon Chew) 80 mg QID PRN PO 12/19/17 10:15 (Motrin) 600 mg Q6H PRN PO 12/19/17 10:15 12/20/17 08:10 (Percocet 5-325 Mg) 1 tab Q4H PRN PO 12/19/17 10:15 12/19/17 23:48 (Percocet 5-325 Mg) 2 tab Q4H PRN PO 12/19/17 10:15 12/20/17 08:10 (Maricarmen-Colace) 2 tab Q12H PRN PO 12/19/17 10:15 12/19/17 23:48 (Ambien) 5 mg HS PRN PO 12/19/17 10:15 (M-M-R Ii Inj) 0.5 ml ONCE ONCE SQ 12/20/17 16:00 12/20/17 16:01 (Boostrix Inj) 0.5 ml ONCE ONCE IM 12/20/17 16:00 12/20/17 16:01 (Zofran Inj) 4 mg Q6H PRN IV PUSH 12/19/17 10:15 ([facility] Nursing Information) NO SYSTEMIC NARCOTICS TO BE GIVEN FO... UNSCH PRN .XX 12/19/17 08:35 12/20/17 08:34 (Narcan Inj) 0.4 mg UNSCH PRN IV PUSH 12/19/17 08:35 12/20/17 08:34 (Benadryl Inj) 25 mg Q6H PRN IV PUSH 12/19/17 08:35 12/20/17 08:34 (Benadryl) 50 mg Q6H PRN PO 12/19/17 08:35 12/20/17 08:34 ([facility] Nursing Information) ALL NURSING DEPARTMENTS UNSCH PRN .XX 12/19/17 08:35 12/20/17 08:34 Assessment/Plan Problem List: (1) PIH ( induced hypertension) ICD Codes: O13.9 - Gestational [-induced] hypertension without significant proteinuria, unspecified trimester (2) 35 weeks gestation of ICD Codes: Z3A.35 - 35 weeks gestation of (3) History of pre-eclampsia in prior , currently in third trimester ICD Codes: O09.293 - Supervision of with other poor reproductive or obstetric history, third trimester Assessment and Plan 31 yo s/p RLTCD for pre-e and iugr at 35 weeks. 1)PreEclampsia - mild range bp prior to deliver, no pp magnesium. BP now normal. 2) Vaginismus- does not tolerate pelvic exam/speculum; needs pap updated 3) POD 1- doing well, likely d/c tomorrow. Baby doing well, in room w parents Sweta Pinon MD December 20, 2017 08:34
[2017-12-20] MEDS ORDERED: MEASLES, MUMPS, RUBELLA VACCINE 0.5 ML VIAL SQ ONE (16:00)
[2017-12-20] MEDS ORDERED: DIPHTH/TETANUS/ACEL PERTUSSIS (BOOSTER) 0.5 ML VIAL/PFS IM ONE (16:00)
[2017-12-20 20:57] VITALS: BP 158/96; PULSE 84; RESP 19; TEMP 98.1
[2017-12-20] MEDS: DOCUSATE SODIUM 50 MG/SENNA 8.6 MG TAB PO PRN (23:01)
[2017-12-21] MEDS: IBUPROFEN 600 MG TAB PO PRN (06:00)
[2017-12-21] MEDS: oxyCODONE/ACETAMINOPHEN 5 MG/325 MG TAB PO PRN (06:00)
[2017-12-21] MEDS ORDERED: PERC5TAB12 PO (07:31)
[2017-12-21] MEDS ORDERED: IBUP-232 PO (07:31)
[2017-12-21 07:50] VITALS: BP 121/81; PULSE 74; RESP 18; TEMP 97.9
--- NOTE | 2017-12-21 08:44 | HHI.OB ---
Subjective Post Operative Day: 2 Remarks Doing well, pain is controlled, ambulating, voiding without difficulty, VB < menses, denies CALVO, vision change, epigastric or RUQ pain. Objective Vitals/I&O Vital Signs Date Time Temp Pulse Resp B/P (MAP) Pulse Ox O2 Delivery O2 Flow Rate FiO2 12/20/17 20:57 98.1 84 19 158/96 (116) Result Diagram: 12/20/17 0451 12/19/17 0529 Objective Remarks GENERAL: Well-nourished, well-developed patient. CARDIOVASCULAR: Regular rate and rhythm without murmurs, gallops, or rubs. RESPIRATORY: Breath sounds equal bilaterally. No accessory muscle use. ABDOMEN/GI: Abdomen soft, non-tender, bowel sounds present. Incision: dressing Clean, dry and intact. Fundus: Firm, non-tender at umbilicus. GENITOURINARY: Light to moderate bleeding. EXTREMITIES: No cyanosis or edema, non-tender, without signs of DVT. Medications and IVs Current Medications Medications (Trade) Dose Ordered Sig/Allyn Route Start Time Stop Time Status Last Admin (NS Flush) 2 ml BID IV FLUSH 12/19/17 21:00 (NS Flush) 2 ml UNSCH PRN IV FLUSH 12/19/17 10:15 (Mylicon Chew) 80 mg QID PRN PO 12/19/17 10:15 (Motrin) 600 mg Q6H PRN PO 12/19/17 10:15 12/21/17 06:00 (Percocet 5-325 Mg) 1 tab Q4H PRN PO 12/19/17 10:15 12/19/17 23:48 (Percocet 5-325 Mg) 2 tab Q4H PRN PO 12/19/17 10:15 12/21/17 06:00 (Maricarmen-Colace) 2 tab Q12H PRN PO 12/19/17 10:15 12/20/17 23:01 (Ambien) 5 mg HS PRN PO 12/19/17 10:15 (Zofran Inj) 4 mg Q6H PRN IV PUSH 12/19/17 10:15 Assessment/Plan Problem List: (1) PIH ( induced hypertension) ICD Codes: O13.9 - Gestational [-induced] hypertension without significant proteinuria, unspecified trimester (2) 35 weeks gestation of ICD Codes: Z3A.35 - 35 weeks gestation of (3) History of pre-eclampsia in prior , currently in third trimester ICD Codes: O09.293 - Supervision of with other poor reproductive or obstetric history, third trimester Assessment and Plan 31 yo s/p RLTCD for pre-e and iugr at 35 weeks. 1) Preeclampsia w/o severe features: has been normotensive mostly since delivery , had mild range / borderline severe BP last night, pt asymptomatic, continue routine vitals, discussed preeclampsia sn/sx after d/c and will return in 1 week to the office. 2) Vaginismus- does not tolerate pelvic exam/speculum; needs pap updated 3) POD 2- doing well, likely d/c today vs tomorrow. - Baby boy doing well, does not desire circ. Brian Jesus MD December 21, 2017 08:44
== END 2017-12-21 12:13 | disposition home or self-care (01) | DRG 765 ==
LOC: H2EA 12:36 → OBSVTOIN 12-19 10:31 → H1EA 12-19 11:24
PROVIDERS: ADMIT Obstetrics & Gynecology; ATTEND Obstetrics & Gynecology
PROC: 10D00Z1 Extraction of Products of Conception, Low, Open Approach (ICD-10-PCS; principal; 2017-12-19)
PROC: 0DNW0ZZ Release Peritoneum, Open Approach (ICD-10-PCS; 2017-12-19)
DX: O14.94 Unspecified pre-eclampsia, complicating childbirth (principal); O36.5930 Maternal care for other known or suspected poor fetal growth, third trimester, not applicable or unspecified; O60.14X0 Preterm labor third trimester with preterm delivery third trimester, not applicable or unspecified; O13.4 Gestational [pregnancy-induced] hypertension without significant proteinuria, complicating childbirth; O34.219 Maternal care for unspecified type scar from previous cesarean delivery; O99.89 Other specified diseases and conditions complicating pregnancy, childbirth and the puerperium; N85.8 Other specified noninflammatory disorders of uterus; N73.6 Female pelvic peritoneal adhesions (postinfective); Z3A.35 35 weeks gestation of pregnancy; Z37.0 Single live birth; N94.2 Vaginismus
CPT/HCPCS: 59025; 76816; 76819; 80053; 80307; 81001; 82570; 84157; 84550; 85025; 85027; 86850; 86900; 86901; 87086; 88307; C1765; C9290; G0481; J0131; J0690; J1100; J2274; J2370; J2405; J2590; J7120